=== PATIENT | female | born 1970 | race Caucasian/White ===

== ENCOUNTER → 2017-01-25 | Outpatient (CLI) | payer OTHER ==
[~2017-01-25] MED LIST: IRON325T PO; MULT1TAB10 PO; SPIR50TA2 PO; [UNRECOGNIZED DRUG - REMARK] EX
--- NOTE | 2017-01-25 16:20 | REP ---
Anterior abdominal wall soft tissue ultrasound: History: Supraumbilical palpable mass. Question tumor. Findings: The area of the palpable mass in the supraumbilical anterior abdominal wall is scanned. A small periumbilical hernia is seen transmitting omental fat. This was largely reducible with probe pressure but not completely reducible. A 4 mm anterior abdominal wall defect is observed. Impression: Ventral hernia in the supraumbilical anterior abdominal wall transmitting omental fat. Signed by Mustapha Doshi MD 01/25/2017 04:40 P
== END ==
LOC: M RAD 08:20
PROVIDERS: ATTEND Obstetrics & Gynecology
DX: K43.9 Ventral hernia without obstruction or gangrene (principal)

== ENCOUNTER → 2019-10-03 | Outpatient (CLI) | payer OTHER ==
[~2019-10-03] MED LIST changes: +GASTROGRAFIN SOLUTION 30ML (Q9963) As Ordered ONE; +ISOVUE-370 76% 100ML VIAL (Q9967) As Ordered ONE; -SPIR50TA2 PO; +SPIR50TA4 PO
--- NOTE | 2019-10-03 19:19 | REP ---
Clinical: Right upper quadrant pain. Possible umbilical hernia. Technique: Axial contrast enhanced images from the lung bases to the pubic symphysis using oral (per protocol) and 100 ml Isovue 370 intravenous contrast material with coronal and sagittal re-formations. Precontrast images of the abdomen obtained. Findings: Lung bases are clear. Visualized heart and pericardium normal. Liver, spleen, pancreas, gallbladder, bilateral adrenal glands and right kidney are normal. Incidental 2 mm nonobstructing left renal calculus noted without hydronephrosis or perinephric stranding. The enteric system is without obstruction or acute inflammatory process. Fecal stasis cannot be excluded and should be correlated with physical examination. Normal terminal ileum and appendix are identified in the right lower quadrant. Small fat containing periumbilical hernia measures approximately 3 cm maximal diameter. Pelvis demonstrates normal bladder and age-appropriate uterus/adnexa with IUD identified in central position. No pelvic fluid or ascites. No free air. No adenopathy. Abdominal aorta and vasculature normal. Musculoskeletal structures are intact. Impression: 1. 3 cm fat containing periumbilical hernia. 2. 2 mm nonobstructing left renal calculus. Electronically Signed by Melvin Kimbrough MD 10/03/2019 07:11 P
== END ==
LOC: M RAD 16:21
PROVIDERS: ATTEND Surgery
DX: K42.9 Umbilical hernia without obstruction or gangrene (principal); N20.0 Calculus of kidney
CPT/HCPCS: 74178; Q9963; Q9967

== ENCOUNTER 2019-11-07 06:02 | Day surgery (SDC) | payer OTHER ==
[~2019-11-07] VITALS: Ht 157.5 cm; Wt 52.2 kg
[~2019-11-07 06:02] MED LIST changes: +APPL300T4 PO; +CALC600T60 PO; +CETI10CH PO; +CVS1CAP2 PO; +EQ I1CAP PO; -GASTROGRAFIN SOLUTION 30ML (Q9963) As Ordered ONE; +IRON65TA2 PO; -ISOVUE-370 76% 100ML VIAL (Q9967) As Ordered ONE; +LIDOCAINE 1% MDV 20ML VIAL SQ PRN; +MIRE1IUD IU; +MM S100C PO; +MULTCAP PO; +VITA-243 PO
[2019-11-07] MEDS ORDERED: LR 1,000 ML IV ONE (06:30)
[2019-11-07] MEDS ORDERED: ceFAZolin SOD 1 GM in D5W MINI-BAG PLUS 50 ML IV ONE (06:30)
[2019-11-07] MEDS ORDERED: BUPIVACAINE/EPIN 0.25% 30 ML VIAL As Ordered ONE (07:10)
[2019-11-07] MEDS ORDERED: BUPIVACAINE HCL 0.25% 10ML VIAL As Ordered ONE (07:11)
[2019-11-07] MEDS ORDERED: BUPIVACAINE LIPOSOME/PF 1.3% 20ML VIAL (13.3MG/ML)(EXPAREL)(C9290 PER1MG) As Ordered ONE (07:11)
[2019-11-07] MEDS ORDERED: ROCURONIUM BROMIDE 50 MG/5 ML VIAL As Ordered ONE (07:12)
[2019-11-07] MEDS ORDERED: LIDOCAINE 2% 100MG/5ML SDV (FOR ANES.) As Ordered ONE (07:12)
[2019-11-07] MEDS ORDERED: propofoL 200 MG/20 ML VIAL As Ordered ONE (07:12)
[2019-11-07] MEDS ORDERED: fentaNYL 100 MCG/2 ML INJECTION (J3010) As Ordered ONE (07:13)
[2019-11-07] MEDS ORDERED: MIDAZOLAM INJ 2MG/2ML VIAL (J2250 PER 1MG) As Ordered ONE (07:13)
[2019-11-07] MEDS ORDERED: SUCCINYLCHOLINE 100 MG/5 ML SYRINGE (J0330) As Ordered ONE (07:43)
[2019-11-07] MEDS ORDERED: dexameTHASONE 4 MG/ML 1ML VIAL (J1100 PER 1MG) As Ordered ONE (07:55)
[2019-11-07] MEDS ORDERED: ePHEDrine SULFATE 25 MG/5 ML(5MG/ML) SYRINGE As Ordered ONE (07:55)
[2019-11-07] MEDS ORDERED: ONDANSETRON 4MG/2ML VIAL (J2405 PER 1MG) As Ordered ONE (07:57)
[2019-11-07] MEDS ORDERED: KETOROLAC 60 MG/2 ML VIAL (J1885 PER 15MG) As Ordered ONE (07:57)
[2019-11-07] MEDS ORDERED: ACETAMINOPHEN 1000MG 100ML IV BTL (OFIRMEV) (J0131 PER 10MG) As Ordered ONE (07:58)
[2019-11-07] MEDS ORDERED: METOCLOPRAMIDE INJ 10MG/2ML VIAL (J2765 PER 1) As Ordered ONE (07:58)
[2019-11-07] MEDS ORDERED: PHENYLephrine HCL 500 MCG/5 ML (100MCG/ML) SYRINGE (J2370) As Ordered ONE (08:00)
[2019-11-07] MEDS ORDERED: SUGAMMADEX SODIUM 500 MG/5 ML VIAL (BRIDION) As Ordered ONE (08:11)
--- NOTE | 2019-11-07 08:39 | RO ---
DATE OF PROCEDURE: 11/07/2019 PREOPERATIVE DIAGNOSIS: Umbilical hernia. POSTOPERATIVE DIAGNOSIS: Epigastric hernia just above the umbilicus. PROCEDURE: Repair of epigastric/umbilical hernia. SURGEON: Robinson Engel MD OFFICE SUPPORT ASSOCIATE: Lia Cruz NP (Provided retraction exposure assistance with closure.) ANESTHESIA: General endotracheal anesthesia. ESTIMATED BLOOD LOSS: Minimal. FLUIDS: Crystalloid. BRIEF PROCEDURE SUMMARY: The patient was brought to the operating room, was given general anesthesia. After adequate anesthesia, the patient was prepped and draped in the usual sterile fashion. Right behind the area of the umbilical ring piercing site just above the umbilicus was a bulge that was easily palpable and creating a skin incision just above this I was able to bluntly and sharply dissect down to the hernia itself, which was above the umbilicus to approximately 2 cm and the hernia sac was dissected down to level of the fascia. This was mobilized and it was preperitoneal fat and most likely was part of the falciform ligament in this very thin individual. This was a transverse fascial defect that was approximately 8 mm in size to a centimeter and it was closed after grasping the fascial edge lifting it off the bowel and the abdominal contents closed with two [id number] #0 Ethibond sutures. It closed quite nicely without undue stress at the site. Exparel was inserted into the fascia and the incision then was closed with #3-0 Vicryl in the deep layer, #3-0 Vicryl dermal layer, #4-0 Vicryl subcuticular. Steri-Strips and a dry sterile dressing was applied. The patient was awakened from anesthesia, brought to the recovery room awake, alert and hemodynamically stable. Edited: 11/07/2019 0838 [facility]
[2019-11-07] MEDS ORDERED: LR 1,000 ML IV SCH ×2 (08:45)
[2019-11-07] MEDS ORDERED: fentaNYL 100 MCG/2 ML INJECTION (J3010) IV PRN (08:45)
[2019-11-07] MEDS ORDERED: oxyCODONE 5MG TAB PO PRN (08:45)
[2019-11-07] MEDS ORDERED: ONDANSETRON 4MG/2ML VIAL (J2405 PER 1MG) IV PRN (08:45)
[2019-11-07] MEDS ORDERED: NORCO, ANEXSIA 5/325MG TABLET (HYDROcodone/ACETAMINOPHEN) PO PRN (08:45)
[2019-11-07 10:20] VITALS: BP 97/56
[2019-11-07] MEDS ORDERED: KETOROLAC 30 MG/ML 1ML VIAL (J1885 PER 15MG) IV SCH (14:00)
== END 2019-11-07 10:25 | disposition home or self-care (01) ==
LOC: M SDC 06:02
PROVIDERS: ATTEND Surgery
DX: K42.9 Umbilical hernia without obstruction or gangrene (principal); Z79.899 Other long term (current) drug therapy; Z91.013 Allergy to seafood; G43.909 Migraine, unspecified, not intractable, without status migrainosus
CPT/HCPCS: 49585; 81025; 88302; C9290; J0131; J0330; J0690; J1100; J1885; J2250; J2370; J2405; J2765; J3010

== ENCOUNTER → 2020-07-22 | Outpatient (REF) | payer OTHER ==
[~2020-07-22] MED LIST changes: -EQ I1CAP PO; +IBUP200C89 PO; -LIDOCAINE 1% MDV 20ML VIAL SQ PRN
== END ==
LOC: M LAB REF 16:38
PROVIDERS: ATTEND Physician Assistant Medical
DX: Z20.828 Contact with and (suspected) exposure to other viral communicable diseases (principal)

== ENCOUNTER → 2021-01-17 | Outpatient (CLI) | payer OTHER ==
[~2021-01-17] MED LIST changes: +ALEV220T22 PO; +EPIN0.3I11; +KETO0.02; +LEVOTAB10; +VITMTA PO; +[UNRECOGNIZED DRUG - REMARK] EXC
== END ==
LOC: M LABSMTC 10:08
PROVIDERS: ATTEND Anesthesiology
DX: Z01.812 Encounter for preprocedural laboratory examination (principal); Z20.822 Contact with and (suspected) exposure to COVID-19

== ENCOUNTER 2021-01-22 06:41 | Day surgery (SDC) | payer OTHER ==
[~2021-01-22] VITALS: Ht 157.5 cm; Wt 56.7 kg
[~2021-01-22 06:41] MED LIST changes: +NS 1,000 ML IV ONE; -VITMTA PO; -[UNRECOGNIZED DRUG - REMARK] EXC
[2021-01-22] MEDS ORDERED: propofoL 200 MG/20 ML VIAL As Ordered ONE ×2 (06:45→07:48)
[2021-01-22] MEDS ORDERED: LIDOCAINE 2% 100MG/5ML SDV (FOR ANES.) As Ordered ONE (06:45)
[2021-01-22] MEDS ORDERED: [UNRECOGNIZED DRUG - REMARK] EXC (07:21)
[2021-01-22] MEDS ORDERED: VITMTA PO (07:24)
--- NOTE | 2021-01-22 07:57 | ROOR ---
Patient Name: Veronica Farnsworth Procedure Date: 01/22/2021 7:32 AM Date of : 1970 Age: 50 Room: [facility] Gender: Female Note Status: Finalized Procedure: Total Colonoscopy to Cecum Indications: Screening in patient at increased risk: Colorectal cancer in mother before age 60 Providers: Lazarus Calzada MD Referring MD: Lacie Jovel NP Requesting Provider: Medicines: Monitored Anesthesia Care Complications: No immediate complications. Procedure: Pre-Anesthesia Assessment: - The heart rate, respiratory rate, oxygen saturations, blood pressure, adequacy of pulmonary ventilation, and response to care were monitored throughout the procedure. The Colonoscope was introduced through the anus and advanced to the cecum, identified by appendiceal orifice and ileocecal valve. The colonoscopy was performed without difficulty. The patient tolerated the procedure well. The quality of the bowel preparation was good. Findings: The perianal and digital rectal examinations were normal. No other significant abnormalities were identified in a careful examination of the remainder of the colon. The retroflexed view of the distal rectum and anal verge was normal and showed no anal or rectal abnormalities. The exam was otherwise without abnormality on direct and retroflexion views. Impression: - The distal rectum and anal verge are normal on retroflexion view. - The examination was otherwise normal on direct and retroflexion views. - No specimens collected. - The exam was otherwise normal to the cecum. Recommendation: - Patient has a contact number available for emergencies. The signs and symptoms of potential delayed complications were discussed with the patient. Return to normal activities tomorrow. Written discharge instructions were provided to the patient. - High fiber diet. - Discharge patient to home. - Continue present medications. - Repeat colonoscopy in 5 years for screening purposes. - Return to referring physician. - The findings and recommendations were discussed with the patient's family. Procedure Code(s): --- Professional --- G0105, Colorectal cancer screening; colonoscopy on individual at high risk Diagnosis Code(s): --- Professional --- Z80.0, Family history of malignant neoplasm of digestive organs CPT copyright 2019 [employer]. All rights reserved. The codes documented in this report are preliminary and upon credit adjuster review may be revised to meet current compliance requirements. Lazarus Calzada MD Lazarus Calzada MD 01/22/2021 7:57:04 AM Electronically signed by Lazarus Calzada MD Number of Addenda: 0 Note Initiated On: 01/22/2021 7:32 AM Estimated Blood Loss: Estimated blood loss: none.
[2021-01-22 08:10] VITALS: BP 98/64
== END 2021-01-22 08:18 | disposition home or self-care (01) ==
LOC: M OPP 06:41
PROVIDERS: ATTEND Internal Medicine Gastroenterology
DX: Z12.11 Encounter for screening for malignant neoplasm of colon (principal); Z80.0 Family history of malignant neoplasm of digestive organs; Z79.899 Other long term (current) drug therapy; Z91.013 Allergy to seafood; Z87.891 Personal history of nicotine dependence

== ENCOUNTER → 2023-09-29 | Outpatient (CLI) | payer OTHER ==
[~2023-09-29] MED LIST changes: +ISOVUE-370 76% 100ML VIAL As Ordered ONE; -KETO0.02; +KETO5DRO33; -NS 1,000 ML IV ONE; +VITMTA PO; +[UNRECOGNIZED DRUG - REMARK] EXC
== END ==
LOC: M RAD 15:16
PROVIDERS: ATTEND Plastic Surgery Plastic Surgery Within the Head and Neck
DX: C50.912 Malignant neoplasm of unspecified site of left female breast (principal)
CPT/HCPCS: 74174; Q9967

== ENCOUNTER → 2024-06-27 | Outpatient (CLI) | payer OTHER ==
[~2024-06-27] MED LIST changes: -ISOVUE-370 76% 100ML VIAL As Ordered ONE
== END ==
LOC: M WHC 13:24
PROVIDERS: ATTEND Surgery Surgical Oncology
DX: C50.919 Malignant neoplasm of unspecified site of unspecified female breast (principal)

== ENCOUNTER → 2024-06-27 | Outpatient (CLI) | payer OTHER ==
[2024-06-27 14:58] LABS: BASO # 0.1 10^3/uL (0.0-0.2); BASO % 1.1 % (0.0-1.0); EOS # 0.2 10^3/uL (0.0-0.5); EOS % 3.8 % (0.0-3.0); HEMATOCRIT 36.8 % (36.0-47.0); HEMOGLOBIN 12.6 g/dl (12.0-15.5); LYMPH # 1.8 10^3/uL (1.5-5.0); MEAN CORPUSCULAR HEMOGLOBIN 34.1 pg (27.0-33.0); MEAN CORPUSCULAR HGB CONC 34.2 g/dl (32.0-36.5); MEAN CORPUSCULAR VOLUME 99.5 fl (80.0-96.0); MONO # 0.5 10^3/uL (0.0-0.8); MONO % 9.7 % (2.0-8.0); NEUTROPHILS # 2.2 10^3/uL (1.5-8.5); NEUTROPHILS % 47.2 % (36.0-66.0); PLATELET COUNT, AUTOMATED 247 10^3/uL (150-450); WHITE BLOOD COUNT 4.7 10^3/uL (4.0-10.0)
[2024-06-27 15:05] LABS: ALBUMIN 3.5 G/DL (3.2-5.2); ALKALINE PHOSPHATASE 58 U/L (35-104); ALT/SGPT 40 U/L (7.0-40); AST/SGOT 28 U/L (<34); BILIRUBIN,TOTAL 0.3 MG/DL (0.3-1.2); BLOOD UREA NITROGEN 27 MG/DL (9-23); CARBON DIOXIDE LEVEL 29 MMOL/L (20-31); CHLORIDE LEVEL 105 MMOL/L (98-107); CREATININE FOR GFR 0.72 MG/DL (0.55-1.30); GLOMERULAR FILTRATION RATE > 60.0 (>51); GLUCOSE, FASTING 98 MG/DL (60-100); POTASSIUM SERUM 4.5 MMOL/L (3.5-5.1); SODIUM LEVEL 140 MMOL/L (136-145); TOTAL PROTEIN 7.2 G/DL (5.7-8.2)
== END ==
LOC: M PLALAB 13:03
PROVIDERS: ATTEND Nurse Practitioner Family
DX: C50.112 Malignant neoplasm of central portion of left female breast (principal); Z17.0 Estrogen receptor positive status [ER+]

== ENCOUNTER → 2024-08-16 | Outpatient (CLI) | payer OTHER ==
[~2024-08-16] MED LIST changes: +PROHANCE 279.3MG/ML 5ML VIAL ONE
== END ==
LOC: M PLAIMG 07:47
PROVIDERS: ATTEND Nurse Practitioner Women's Health
DX: C50.919 Malignant neoplasm of unspecified site of unspecified female breast (principal); R92.8 Other abnormal and inconclusive findings on diagnostic imaging of breast

== ENCOUNTER → 2025-02-05 | Outpatient (CLI) | payer OTHER ==
[~2025-02-05] MED LIST changes: -PROHANCE 279.3MG/ML 5ML VIAL ONE
== END ==
LOC: M WHC 12:45
PROVIDERS: ATTEND Nurse Practitioner Family
DX: M85.89 Other specified disorders of bone density and structure, multiple sites (principal); C50.112 Malignant neoplasm of central portion of left female breast